=== PATIENT | female | born 1985 | race Caucasian/White ===

== ENCOUNTER 2016-11-06 15:23 | Emergency (ER) | payer OTHER ==
[~2016-11-06] VITALS: Ht 160 cm; Wt 71.7 kg
[2016-11-06 18:14] VITALS: BP 103/69
== END 2016-11-06 18:00 | disposition home or self-care (01) ==
LOC: ED 15:23
DX: G43.909 Migraine, unspecified, not intractable, without status migrainosus (principal); R03.0 Elevated blood-pressure reading, without diagnosis of hypertension; E78.00 Pure hypercholesterolemia, unspecified; F17.200 Nicotine dependence, unspecified, uncomplicated; Z79.899 Other long term (current) drug therapy; Z88.0 Allergy status to penicillin
CPT/HCPCS: J1885; Q0162

== ENCOUNTER 2017-03-24 20:58 | Emergency (ER) | payer OTHER ==
[2017-03-24 21:46] VITALS: BP 118/84
== END 2017-03-24 21:46 | disposition home or self-care (01) ==
LOC: ED 20:58
DX: K02.9 Dental caries, unspecified (principal); Z88.0 Allergy status to penicillin

== ENCOUNTER 2017-05-11 18:01 | Emergency (ER) | payer OTHER ==
[2017-05-11 18:26] VITALS: BP 118/76
== END 2017-05-11 19:54 | disposition home or self-care (01) ==
LOC: ED 18:01
DX: J32.9 Chronic sinusitis, unspecified (principal); G43.909 Migraine, unspecified, not intractable, without status migrainosus; Z88.0 Allergy status to penicillin
CPT/HCPCS: J1885

== ENCOUNTER 2017-07-13 16:32 | Emergency (ER) | payer OTHER ==
[~2017-07-13] VITALS: Ht 160 cm; Wt 73.0 kg
[2017-07-13 17:44] VITALS: BP 137/65; Ht 160 cm; Wt 73.0 kg
== END 2017-07-13 19:15 | disposition home or self-care (01) ==
LOC: ED 16:32
DX: L30.9 Dermatitis, unspecified (principal); G43.909 Migraine, unspecified, not intractable, without status migrainosus; Z88.0 Allergy status to penicillin; Z88.1 Allergy status to other antibiotic agents

== ENCOUNTER 2017-10-05 17:27 | Emergency (ER) | payer OTHER ==
[~2017-10-05] VITALS: Ht 160 cm; Wt 82.5 kg
[2017-10-05 17:47] VITALS: BP 115/68; Ht 160 cm; Wt 82.5 kg
== END 2017-10-05 19:14 | disposition home or self-care (01) ==
LOC: ED 17:27
DX: R51 Headache (principal); Z88.0 Allergy status to penicillin; Z88.1 Allergy status to other antibiotic agents

== ENCOUNTER 2018-02-23 16:42 | Emergency (ER) | payer OTHER ==
[~2018-02-23] VITALS: Ht 160 cm; Wt 75.3 kg
[2018-02-23 16:58] VITALS: BP 129/66; Ht 160 cm; Wt 75.3 kg
== END 2018-02-23 18:17 | disposition home or self-care (01) ==
LOC: ED 16:42
DX: K02.9 Dental caries, unspecified (principal); G43.909 Migraine, unspecified, not intractable, without status migrainosus; Z88.0 Allergy status to penicillin; Z88.1 Allergy status to other antibiotic agents
CPT/HCPCS: J2405

== ENCOUNTER 2018-04-22 17:08 | Emergency (ER) | payer OTHER ==
[~2018-04-22] VITALS: Ht 167.6 cm; Wt 76.7 kg
[2018-04-22 17:17] VITALS: Ht 167.6 cm; Wt 76.7 kg
[2018-04-22 19:26] VITALS: BP 100/59
== END 2018-04-22 19:47 | disposition home or self-care (01) ==
LOC: ED 17:08
DX: G43.909 Migraine, unspecified, not intractable, without status migrainosus (principal); E78.00 Pure hypercholesterolemia, unspecified; Z98.890 Other specified postprocedural states; Z88.0 Allergy status to penicillin; Z88.1 Allergy status to other antibiotic agents
CPT/HCPCS: J0780; J1885; J3010; Q0162

== ENCOUNTER 2018-06-11 14:25 | Emergency (ER) | payer OTHER ==
[~2018-06-11] VITALS: Ht 160 cm; Wt 80.5 kg
[2018-06-11 14:29] VITALS: Ht 160 cm; Wt 80.5 kg
[2018-06-11 17:29] VITALS: BP 135/81
== END 2018-06-11 17:29 | disposition home or self-care (01) ==
LOC: ED 14:25
DX: S16.1XXA Strain of muscle, fascia and tendon at neck level, initial encounter (principal); E78.00 Pure hypercholesterolemia, unspecified; L30.9 Dermatitis, unspecified; Z88.0 Allergy status to penicillin; Z88.5 Allergy status to narcotic agent; Z98.890 Other specified postprocedural states; V49.09XA Driver injured in collision with other motor vehicles in nontraffic accident, initial encounter; Y93.I9 Activity, other involving external motion; Y92.413 State road as the place of occurrence of the external cause; Y99.8 Other external cause status
CPT/HCPCS: J0780; J1885; Q0162

== ENCOUNTER 2018-06-18 22:28 | Emergency (ER) | payer OTHER ==
[~2018-06-18] VITALS: Ht 160 cm; Wt 82.6 kg
[2018-06-18 22:46] VITALS: Ht 160 cm; Wt 82.6 kg
[2018-06-18 23:54] VITALS: BP 136/88
== END 2018-06-18 23:54 | disposition home or self-care (01) ==
LOC: ED 22:28
DX: K08.89 Other specified disorders of teeth and supporting structures (principal); E78.00 Pure hypercholesterolemia, unspecified; L30.9 Dermatitis, unspecified; R11.10 Vomiting, unspecified; G43.909 Migraine, unspecified, not intractable, without status migrainosus; Z88.0 Allergy status to penicillin; Z98.890 Other specified postprocedural states
CPT/HCPCS: J1885; Q0162

== ENCOUNTER 2018-06-19 04:33 | Emergency (ER) | payer OTHER ==
[~2018-06-19] VITALS: Ht 160 cm; Wt 82.1 kg
[2018-06-19 04:51] VITALS: BP 120/83; Ht 160 cm; Wt 82.1 kg
== END 2018-06-19 06:07 | disposition home or self-care (01) ==
LOC: ED 04:33
DX: K04.7 Periapical abscess without sinus (principal); K08.89 Other specified disorders of teeth and supporting structures; E78.00 Pure hypercholesterolemia, unspecified; G43.909 Migraine, unspecified, not intractable, without status migrainosus; Z88.0 Allergy status to penicillin
CPT/HCPCS: J2270

== ENCOUNTER 2019-01-04 01:38 | Emergency (ER) | payer OTHER ==
[~2019-01-04] VITALS: Ht 160 cm; Wt 89.8 kg
[2019-01-04 01:42] VITALS: Ht 160 cm; Wt 89.8 kg
[2019-01-04 03:31] VITALS: BP 110/70
== END 2019-01-04 03:31 | disposition home or self-care (01) ==
LOC: ED 01:38
DX: G43.909 Migraine, unspecified, not intractable, without status migrainosus (principal); E78.00 Pure hypercholesterolemia, unspecified; Z98.890 Other specified postprocedural states; Z88.0 Allergy status to penicillin; Z88.1 Allergy status to other antibiotic agents
CPT/HCPCS: J0780; J1885

== ENCOUNTER 2019-04-22 13:07 | Emergency (ER) | payer BC, OTHER ==
[~2019-04-22] VITALS: Ht 167.6 cm; Wt 79.4 kg
[2019-04-22 13:14] VITALS: Ht 167.6 cm; Wt 79.4 kg
[2019-04-22 13:46] LABS: BASOPHIL % 0.1 % (0-2); RED CELL DISTRIBUTION WIDTH 13.5 % (11.5-14.5)
[2019-04-22 13:47] LABS: PLATELET COUNT 431 x10^3mcL (130-400)
[2019-04-22 13:58] LABS: CALCIUM 9.3 mg/dL (8.5-10.1); CARBON DIOXIDE 24.6 mmol/L (21-32); CHLORIDE SERUM 98 mmol/L (98-107); CREATININE SERUM 0.9 mg/dL (0.6-1.0); GFR1 > 60 mL/min; GLUCOSE SERUM 131 mg/dL (74-106); SODIUM SERUM 134 mmol/L (136-145)
[2019-04-22 14:06] LABS: ALBUMIN 3.7 g/dL (3.4-5.0); ALKALINE PHOSPHATASE 84 U/L (46-116); ALT/SGPT 43 U/L (14-59); AST/SGOT 19 U/L (15-37); BILIRUBIN TOTAL 0.6 mg/dL (0.20-1.00); TOTAL PROTEIN, SERUM 7.9 g/dL (6.4-8.2)
[2019-04-22 16:28] VITALS: BP 108/56
== END 2019-04-22 16:28 | disposition home or self-care (01) ==
LOC: ED 13:07
PROVIDERS: Emergency Medicine
DX: G43.909 Migraine, unspecified, not intractable, without status migrainosus (principal); K04.7 Periapical abscess without sinus; E78.00 Pure hypercholesterolemia, unspecified; Z88.0 Allergy status to penicillin; Z98.890 Other specified postprocedural states
CPT/HCPCS: J1885; J2765; J3490; J7060; Q0092

== ENCOUNTER 2020-04-23 05:49 | Emergency (ER) | payer BC, OTHER ==
[~2020-04-23] VITALS: Ht 160 cm; Wt 85.7 kg
[2020-04-23 05:54] VITALS: Ht 160 cm; Wt 85.7 kg
[2020-04-23 09:02] VITALS: BP 118/72
== END 2020-04-23 09:02 | disposition home or self-care (01) ==
LOC: ED 05:49
DX: O29.41 Spinal and epidural anesthesia induced headache during pregnancy, first trimester (principal); G43.909 Migraine, unspecified, not intractable, without status migrainosus; F17.210 Nicotine dependence, cigarettes, uncomplicated; Z88.0 Allergy status to penicillin; Z88.1 Allergy status to other antibiotic agents; Z3A.01 Less than 8 weeks gestation of pregnancy
CPT/HCPCS: 99406; J0780; Q0162